=== PATIENT | female | born 1985 | race African-American/Black ===

== ENCOUNTER 2023-11-19 23:59 | Emergency (ER) | payer OTHER | END 2023-11-20 02:08 | disposition home or self-care (01) | LOC: CSHERS 23:59 | DX: Z48.89 Encounter for other specified surgical aftercare (principal); L76.22 Postprocedural hemorrhage of skin and subcutaneous tissue following other procedure; Z85.3 Personal history of malignant neoplasm of breast | CPT/HCPCS: 99283 ==